=== PATIENT | female | born 1965 | race Caucasian/White ===

== ENCOUNTER → 2017-01-11 | Outpatient (CLI) | payer OTHER ==
[~2017-01-11] MED LIST: ELAVIL 50 MG TA50 MG PO; IBUPROFEN800 MG PO; LEVOTHYROXINE25 MCG PO; NORCO 7.5-3251 EACH PO; PRAVASTATIN SOD20 MG PO; PROPRANOLOL HCL20 MG PO; SUMATRIPTAN SU100 MG PO; XARELTO10 MG PO
[2017-01-11 14:26] LABS: HEMOGLOBIN 15.7 gm/dl (12.3-15.3); RED BLOOD COUNT 4.93 M/UL (4.00-5.10); WHITE BLOOD COUNT 11.4 K/UL (4.5-11.0)
[2017-01-11 14:35] LABS: BUN/CREATININE RATIO 22 (0-10)
== END ==
LOC: OPSV2 13:30
PROVIDERS: Orthopaedic Surgery
DX: Z01.812 Encounter for preprocedural laboratory examination (principal); Z01.810 Encounter for preprocedural cardiovascular examination; M17.12 Unilateral primary osteoarthritis, left knee; Z88.0 Allergy status to penicillin
CPT/HCPCS: 36415; 80048; 81001; 85025; 87077; 87081; 87086; 87186; 93005

== ENCOUNTER → 2017-01-20 | Outpatient (CLI) | payer OTHER ==
[2017-01-20 11:44] LABS: BUN/CREATININE RATIO 20 (0-10)
== END ==
LOC: LAB 10:52
PROVIDERS: Orthopaedic Surgery
DX: Z01.818 Encounter for other preprocedural examination (principal)
CPT/HCPCS: 36415; 80048; 86850; 86900; 86901

== ENCOUNTER 2017-01-21 08:50 | Observation (INO) | payer OTHER ==
[~2017-01-21] VITALS: Ht 162.6 cm; Wt 97.5 kg
[2017-01-21] MEDS ORDERED: ELAVIL 50 MG TA50 MG PO (09:20)
[2017-01-21] MEDS ORDERED: SUMATRIPTAN SU100 MG PO (09:20)
[2017-01-21] MEDS ORDERED: PRAVASTATIN SOD20 MG PO (09:23)
[2017-01-21] MEDS ORDERED: IBUPROFEN800 MG PO (09:24)
[2017-01-21] MEDS ORDERED: LEVOTHYROXINE25 MCG PO (09:25)
[2017-01-21] MEDS ORDERED: PROPRANOLOL HCL20 MG PO (09:25)
[2017-01-22 06:01] LABS: HEMOGLOBIN 12.7 gm/dl (12.3-15.3); RED BLOOD COUNT 4.04 M/UL (4.00-5.10); WHITE BLOOD COUNT 13.2 K/UL (4.5-11.0)
[2017-01-22 06:15] LABS: BUN/CREATININE RATIO 20 (0-10)
[2017-01-22] MEDS ORDERED: NORCO 7.5-3251 EACH PO (14:22)
[2017-01-22] MEDS ORDERED: XARELTO10 MG PO (14:23)
== END 2017-01-22 16:05 | disposition home or self-care (01) ==
LOC: OR 08:50 → M/S 16:18 → OR 16:36 → M/S 16:36
PROVIDERS: ADMIT Orthopaedic Surgery
PROC: 0SRD0L9 Replacement of Left Knee Joint with Medial Unicondylar Synthetic Substitute, Cemented, Open Approach (ICD-10-PCS; principal; 2017-01-21 11:30)
DX: M17.12 Unilateral primary osteoarthritis, left knee (principal); G89.29 Other chronic pain; K21.9 Gastro-esophageal reflux disease without esophagitis; M54.9 Dorsalgia, unspecified; M79.7 Fibromyalgia; F41.9 Anxiety disorder, unspecified; F32.9 Major depressive disorder, single episode, unspecified; F17.210 Nicotine dependence, cigarettes, uncomplicated; Z80.1 Family history of malignant neoplasm of trachea, bronchus and lung; Z82.3 Family history of stroke; Z82.49 Family history of ischemic heart disease and other diseases of the circulatory system; Z83.3 Family history of diabetes mellitus; Z88.0 Allergy status to penicillin; Z79.1 Long term (current) use of non-steroidal anti-inflammatories (NSAID); Z90.89 Acquired absence of other organs; Z98.890 Other specified postprocedural states
CPT/HCPCS: 73560; 80048; 85025; 96365; 96366; 96375; 96376; 97110; 97116; 97535; C1713; C1776; G0378; J1100; J2250; J2405; J2710; J3010; J3370; J7120

== ENCOUNTER → 2021-01-12 | Outpatient (CLI) | payer OTHER | LOC: EMI 14:51 | DX: M51.16 Intervertebral disc disorders with radiculopathy, lumbar region (principal); M47.26 Other spondylosis with radiculopathy, lumbar region; R20.0 Anesthesia of skin; M48.061 Spinal stenosis, lumbar region without neurogenic claudication; M47.817 Spondylosis without myelopathy or radiculopathy, lumbosacral region; M51.27 Other intervertebral disc displacement, lumbosacral region; M48.07 Spinal stenosis, lumbosacral region | CPT/HCPCS: 72148 ==